=== PATIENT | female | born 1960 | race Caucasian/White ===

== ENCOUNTER → 2021-02-14 | Outpatient (CLI) | payer OTHER ==
--- NOTE | 2021-02-14 15:42 | RAD ---
EXAM: Left elbow, 2 views. HISTORY: Pain. COMPARISON: None. FINDINGS: 2 views of the left elbow are obtained. There is no fracture, dislocation or subluxation. T here is no joint effusion. IMPRESSION: No acute osseous finding. Electronically signed by: Vanessa Dowling MD (02/14/2021 3:40 PM) [id number]
== END ==
LOC: RAD 15:07
PROVIDERS: ATTEND Physician Assistant
DX: M25.522 Pain in left elbow (principal)
CPT/HCPCS: 73070